=== PATIENT | male | born 1955 ===

== ENCOUNTER 2024-03-22 06:44 | Day surgery (SDC) | payer OTHER ==
[2024-03-11 07:58] VITALS: BP 150/90
[2024-03-11 08:05] LABS: HEMATOCRIT 34.8 % (39.0-48.0); HEMOGLOBIN 11.7 g/dL (13-16.00); MEAN CELL VOLUME 100.2 fL (80.0-100.00); MEAN CORPUSCULAR HEMOGLOBIN 33.6 pg (27.00-32.0); MEAN CORPUSCULAR HGB CONC 33.6 g/dl (32.0-36.0); PLATELET COUNT 229 K/uL (150-450); RED BLOOD COUNT 3.47 M/uL (4.00-6.00)
[2024-03-11 08:11] LABS: PH,URINE 5.5 (5.0-8.0); URINE APPEARANCE Clear; URINE BILIRRUBIN Negative (NEGATIVE); URINE BLOOD Negative; URINE COLOR Yellow; URINE GLUCOSE Negative (NEGATIVE); URINE KETONE Negative (NEGATIVE); URINE LEUKOCYTE Negative; URINE NITRATE Negative; URINE PROTEIN Negative (NEGATIVE)
[2024-03-11 08:15] LABS: URINE BACTERIA 4.8 uL (0.0-1933); URINE EPITHELIAL CELLS 1.7 uL (0.0-38.8); URINE RBC 2.3 uL (0.0-20.8); URINE WBC 6.3 uL (0.0-23.2)
[2024-03-11 08:36] LABS: INR 0.98; PARTIAL THROMBOPLASTIN TIME 25.5 SECONDS (22.0-34.0); PROTHROMBIN TIME 10.7 SECONDS (9.0-11.5)
[2024-03-11 08:37] LABS: ALBUMIN 3.7 gm/dL (3.4-5.0); BILIRUBIN TOTAL 1.36 mg/dL (0.3-1.2); CALCIUM 8.8 mg/dL (8.5-10.1); GFR 74.09; GLOBULINA 3.7 G/DL (2.4-3.5); POTASSIUM 4.42 mEq/L (3.5-5.1); TOTAL PROTEIN 7.4 gm/dL (6.4-8.2)
[~2024-03-22] VITALS: Ht 188 cm; Wt 80.7 kg
[~2024-03-22 06:44] MED LIST: METFORMIN HCL500 M3 PO
[2024-03-22] MEDS ORDERED: CEFAZOLIN SODIUM 1,000 MG VIAL ONE ×2 (08:54→13:00)
[2024-03-22] MEDS ORDERED: CEFAZOLIN SODIUM 1,000 MG VIAL IV SCH (12:45)
[2024-03-22] MEDS ORDERED: FAMOTIDINE/PF 20 MG/10 ML SYRINGE IV SCH (12:45)
[2024-03-22] MEDS ORDERED: FAMOTIDINE/PF 20 MG/2 ML VIAL ONE (13:01)
[2024-03-22] MEDS ORDERED: MORPHINE SULFATE 4 MG/ML VIAL IV ONE ×3 (13:30→14:00)
== END 2024-03-22 15:00 | disposition home or self-care (01) ==
LOC: CIR.AMB 06:44
PROVIDERS: ATTEND Specialist
DX: K40.90 Unilateral inguinal hernia, without obstruction or gangrene, not specified as recurrent (principal); E11.9 Type 2 diabetes mellitus without complications; I10 Essential (primary) hypertension
CPT/HCPCS: 49505; C1781